=== PATIENT | female | born 1990 | race Caucasian/White ===

== ENCOUNTER → 2016-12-12 | Outpatient (CLI) | payer OTHER ==
[~2016-12-12] MED LIST: Gadobenate Dimeglumine 529 MG/ML 20 ML SDV IV ONE
--- NOTE | 2016-12-12 11:34 | MR ---
EXAMINATION: MRI of the brain with and without contrast. TECHNIQUE: Multiplanar and multisequence imaging of the brain without and following 15 cc of Multih ance contrast. HISTORY: Dizziness. FINDINGS: Cerebral hemispheres and the deep nuclei are without hemorrhage, mass, edema, gliosis, enhancement o r atrophy. No abnormal diffusion restriction. No extraaxial collections or hemorrhage. Ventricular system is of normal size and configuration without hydrocephalus. No evidence for globe flattening, small ventricles or partially empty sella to suggest pseudotumor cerebri. The brainstem and cerebellum are without hemorrhage, mass, edema, gliosis, enhancement or atrophy. Carotid basilar artery flow voids are intact. The otomastoid airspaces are clear. No internal miguel tory canal or cerebellopontine angle masses or enhancement. There is mild mucosal thickening within the maxillary sinuses. Globes, optic nerves, orbital apices, optic chiasm, optic tracts, and visual cortices are unremarka ble. The pituitary and sella turcica are unremarkable. No meningeal enhancement. The craniocervic al junction is unremarkable. No siderosis or evidence of vascular malformation. The calvarium is intact. IMPRESSION: 1. No acute intracranial findings.
== END ==
LOC: MW.MRI 08:29
PROVIDERS: ATTEND Family Medicine
DX: R42 Dizziness and giddiness (principal); G43.909 Migraine, unspecified, not intractable, without status migrainosus
CPT/HCPCS: 70553; A9577

== ENCOUNTER 2017-04-20 17:09 | Emergency (ER) | payer BC ==
--- NOTE | 2017-04-20 17:50 | EDM.PDOC ---
ED HPI GENERAL MEDICAL PROBLEM - General Chief Complaint: Abdominal Pain Stated Complaint: ABDOMINAL PAIN Time Seen by Provider: 04/20/17 17:34 - History of Present Illness INITIAL COMMENTS - FREE TEXT/NARRATIVE: HISTORY AND PHYSICAL: History of present illness: The patient is a 26-year-old female who is a 2 para 1001 who is 14 weeks with EDC of 10/24/17 and presents with complaints of lower pelvic pain bilaterally that started early this morning, 2 AM, and this pain radiates to her lower back. She has no flank pain no upper abdominal pain no nausea or vomiting and no specific diarrhea. The patient says she has had nausea and vomiting with this but that has been improving. She denies any fevers or chills or upper respiratory symptoms. She has no vaginal bleeding. She says the pelvic pain does not localize right or left and is deep in the pelvis. The patient has a known twin gestation and was sent here by Dr. Draper for evaluation of UA and ultrasound for cervical length. Patient denies any hematuria or frequency. The patient has had dysuria with urination over the last several days. Patient has no GI or history and no abdominal surgeries Review of systems: As per history of present illness and below otherwise all systems reviewed and negative. Past medical history: As per history of present illness and as reviewed below otherwise noncontributory. Surgical history: As per history of present illness and as reviewed below otherwise noncontributory. Social history: No reported history of drug or alcohol abuse. Family history: As per history of present illness and as reviewed below otherwise noncontributory. Physical exam: Gen.: Well-developed well-nourished female was nontoxic and moves easily in the ED. HEENT: Atraumatic, normocephalic, negative for conjunctival pallor or scleral icterus, mucous membranes moist, throat clear, neck supple, nontender, trachea midline. Lungs: Clear to auscultation, breath sounds equal bilaterally, chest nontender. Heart: S1S2, regular rate and rhythm no overt murmurs Abdomen: Soft, nondistended, nontender. On palpation I cannot reproduce the pain with deep examination of the lower abdomen and there is no rebound or guarding. Bowel sounds are slightly hypoactive Negative for masses or hepatosplenomegaly. Negative for costovertebral tenderness. Pelvis: Stable nontender. Genitourinary: Deferred. Rectal: Deferred. Extremities: Atraumatic, negative for cords or calf pain. Neurovascular unremarkable. Neuro: Awake, alert, oriented. Cranial nerves II through XII unremarkable. Cerebellum unremarkable. Motor and sensory unremarkable throughout. Exam nonfocal. Diagnostics: CBC CMP UA urine culture ultrasound for cervical length Therapeutics: 174: Case was discussed with Dr. draper and she specifically wants an ultrasound transvaginally for cervical length. I will notify the technologist of this. She asked to be recontacted if the cervical length is less than 2 cm. Impression: Pelvic pain in second trimester stable Definitive disposition and diagnosis as appropriate pending reevaluation and review of above. Lower Abdominal Pain Score (Numeric/FACES): 8 - Related Data Allergies Allergy/AdvReac Type Severity Reaction Status Date / Time Penicillins Allergy Swelling Verified 04/20/17 17:29 Home Meds: Home Meds . 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, Peripheral, Other (See Below) Other Neuro History: sciatic nerve damage Psychiatric History: Reports: ADD - Infectious Disease History Infectious Disease History: Reports: Chicken Pox, MRSA Social & Family History - Family History Family Medical History: Noncontributory - Tobacco Use Smoking Status *Q: Never Smoker Second Hand Smoke Exposure: No - Caffeine Use Caffeine Use: Reports: Coffee, Soda - Alcohol Use Days Per Week of Alcohol Use: 0 - Recreational Drug Use Recreational Drug Use: No ED ROS GENERAL - Review of Systems Review Of Systems: ROS reveals no pertinent complaints other than HPI. ED EXAM, GENERAL - Physical Exam Exam: See Below (See dictation) Course - Vital Signs Last Recorded V/S: Last Vital Signs Temp 36.7 C 04/20/17 17:24 Pulse 84 04/20/17 19:35 Resp 14 04/20/17 19:35 BP 113/75 04/20/17 19:35 Pulse Ox 100 04/20/17 19:35 - Orders/Labs/Meds Orders: Active Orders 24 hr Category Date Time Status OB Transvaginal [US] Stat Exams 04/20/17 18:20 Taken CULTURE URINE [RM] Stat Lab 04/20/17 18:05 Received Labs: Laboratory Tests 04/20/17 04/20/17 04/20/17 Range/Units 17:58 17:58 18:05 WBC 7.20 (4.0-11.0) K/uL RBC 4.43 (4.30-5.90) M/uL Hgb 13.9 (12.0-16.0) g/dL Hct 38.3 (36.0-46.0) % MCV 86.5 (80.0-98.0) fL MCH 31.4 (27.0-32.0) pg MCHC 36.3 (31.0-37.0) g/dL RDW Std Deviation 41.9 (28.0-62.0) fl RDW Coeff of Emiliana 13 (11.0-15.0) % Plt Count 171 (150-400) K/uL MPV 9.10 (7.40-12.00) fL Neut % (Auto) 59.9 (48.0-80.0) % Lymph % (Auto) 30.6 (16.0-40.0) % Mcdonald % (Auto) 8.2 (0.0-15.0) % Eos % (Auto) 1.0 (0.0-7.0) % Baso % (Auto) 0.3 (0.0-1.5) % Neut # (Auto) 4.3 (1.4-5.7) K/uL Lymph # (Auto) 2.2 (0.6-2.4) K/uL Mcdonald # (Auto) 0.6 (0.0-0.8) K/uL Eos # (Auto) 0.1 (0.0-0.7) K/uL Baso # (Auto) 0.0 (0.0-0.1) K/uL Nucleated RBC % 0.0 /100WBC Nucleated RBCs # 0 K/uL Sodium 137 (136-146) mmol/L Potassium 3.6 (3.5-5.1) mmol/L Chloride 110 (98-110) mmol/L Carbon Dioxide 20 L (21-31) mmol/L BUN 3 L (6.0-23.0) mg/dL Creatinine 0.6 (0.6-1.5) mg/dL Est Cr Clr Drug Dosing 116.50 mL/min Estimated GFR (MDRD) > 60.0 ml/min Glucose 84 (60-110) mg/dL Calcium 8.7 L (8.8-10.8) mg/dL Total Bilirubin 0.3 (0.1-1.5) mg/dL AST 19 (5-40) IU/L ALT 15 (8-54) IU/L Alkaline Phosphatase 60 (40-150) Total Protein 6.4 (6.0-8.0) g/dL Albumin 3.6 (3.5-5.0) g/dL Globulin 2.8 (2.0-3.5) g/dL Albumin/Globulin Ratio 1.3 (1.3-2.8) Urine Color YELLOW Urine Appearance CLEAR Urine pH 6.0 (5.0-8.0) Ur Specific Auxier <= 1.005 (1.001-1.035) Urine Protein NEGATIVE (NEGATIVE) mg/dL Urine Glucose (UA) NEGATIVE (NEGATIVE) mg/dL Urine Ketones TRACE H (NEGATIVE) mg/dL Urine Occult Blood NEGATIVE (NEGATIVE) Urine Nitrite NEGATIVE (NEGATIVE) Urine Bilirubin NEGATIVE (NEGATIVE) Urine Urobilinogen 0.2 (<2.0) EU/dL Ur Leukocyte Esterase TRACE (NEGATIVE) Urine RBC 0-2 (0-2/HPF) Urine WBC 1-2 (0-5/HPF) Ur Epithelial Cells FEW (NONE-FEW) Urine Bacteria FEW (NEGATIVE) Urine Mucus LIGHT (NONE-MOD) Departure - Departure Time of Disposition: 19:25 Disposition: Home, Self-Care 01 Condition: Good Clinical Impression: Pelvic pain affecting in second trimester, antepartum - Discharge Information Instructions: Pelvic Pain, Female, [id number] Referrals: Jannie Brito DO [Primary Care Provider] - Forms: ED Department Discharge Additional Instructions: The following information is given to patients seen in the emergency department who are being discharged to home. This information is to outline your options for follow-up care. We provide all patients seen in our emergency department with a follow-up referral. The need for follow-up, as well as the timing and circumstances, are variable depending upon the specifics of your emergency department visit. If you don't have a primary care physician on staff, we will provide you with a referral. We always advise you to contact your personal physician following an emergency department visit to inform them of the circumstance of the visit and for follow-up with them and/or the need for any referrals to a consulting specialist. The emergency department will also refer you to a specialist when appropriate. This referral assures that you have the opportunity for followup care with a specialist. All of these measure are taken in an effort to provide you with optimal care, which includes your followup. Under all circumstances we always encourage you to contact your private physician who remains a resource for coordinating your care. When calling for followup care, please make the office aware that this follow-up is from your recent emergency room visit. If for any reason you are refused follow-up, please contact the [facility] emergency department at and ask to speak to the emergency department charge nurse. [facility] [address] [id number] Push hydration and follow-up with Dr. Draper in the clinic as scheduled. Use Tylenol only for pain if you choose and return to ER as needed and as discussed. - My Orders Last 24 Hours: My Active Orders 04/20/17 18:05 CULTURE URINE [RM] Stat 04/20/17 18:20 OB Transvaginal [US] Stat - Assessment/Plan Last 24 Hours: My Active Orders 04/20/17 18:05 CULTURE URINE [RM] Stat 04/20/17 18:20 OB Transvaginal [US] Stat
[2017-04-20 18:27] LABS: CHLORIDE,CL 110 mmol/L (98-110); SODIUM,NA 137 mmol/L (136-146)
[2017-04-20 23:41] VITALS: BP 113/75
--- NOTE | 2017-04-21 10:53 | US ---
EXAM DATE: 04/20/17 PATIENT'S AGE: 26 Patient: MIGNON NOONAN Facility: [place], [place] Site . Site : 1990 Study: US OB Pelvis [id number] 6:45:11 PM Ordering Physician: José Treviño Final Report: INDICATION: Twin gestation. Abdominal pain. Evaluate cervical length. FINDINGS/IMPRESSION: Limited transvaginal sonographic evaluation shows the cervix to be closed with a normal cervical length of 4.3 to 5.3 centimeters. There is a twin gestation with both fetuses exhibiting cardiac activity with heart rates of 149 and 169 BPM. Dictated by: Ole Dangelo MD @ 04/20/2017 19:13:49 (Electronic Signature) Report Signed by Proxy. MARI
== END 2017-04-20 19:36 | disposition home or self-care (01) ==
LOC: MW.ED 17:09
DX: O99.89 Other specified diseases and conditions complicating pregnancy, childbirth and the puerperium (principal); R10.2 Pelvic and perineal pain; Z3A.14 14 weeks gestation of pregnancy
CPT/HCPCS: 36415; 76817; 76817-26; 80053; 81001; 85025; 87086; 99283; 99284-25

== ENCOUNTER 2017-06-05 17:14 | Emergency (ER) | payer BC ==
--- NOTE | 2017-06-05 17:39 | EDM.PDOC ---
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 Past medical history: As per history of present illness and as reviewed below otherwise noncontributory. Surgical history: As per history of present illness and as reviewed below otherwise noncontributory. Social history: No reported history of drug or alcohol abuse. Family history: As per history of present illness and as reviewed below otherwise noncontributory. Physical exam: HEENT: Atraumatic, normocephalic, pupils reactive, negative for conjunctival pallor or scleral icterus, mucous membranes moist, throat clear, neck supple, nontender, trachea midline. Lungs: Clear to auscultation, breath sounds equal bilaterally, chest nontender. Heart: S1S2, regular, negative for clicks, rubs, or JVD. Abdomen: Soft, gravid uterus consistent with dates nontender. Negative for masses or hepatosplenomegaly. Negative for costovertebral tenderness. Pelvis: Stable nontender. Genitourinary: Deferred. Rectal: Deferred. Extremities: Atraumatic, negative for cords or calf pain. Neurovascular unremarkable. Neuro: Awake, alert, oriented. Cranial nerves II through XII unremarkable. Cerebellum unremarkable. Motor and sensory unremarkable throughout. Exam nonfocal. Diagnostics: Transabdominal ultrasound for fluid transvaginal for cervical Therapeutics: None Impression: #1 second trimester twin gestation #2 medical screening exam Definitive disposition and diagnosis as appropriate pending reevaluation and review of above. Abdominal Pain Score (Numeric/FACES): 6 - Related Data Allergies Allergy/AdvReac Type Severity Reaction Status Date / Time Penicillins Allergy Swelling Verified 04/20/17 17:29 Home Meds: Home Meds . 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, Peripheral, Other (See Below) Other Neuro History: sciatic nerve damage Psychiatric History: Reports: ADD - Infectious Disease History Infectious Disease History: Reports: C-Difficile, MRSA Social & Family History - Family History Family Medical History: Noncontributory - Tobacco Use Smoking Status *Q: Never Smoker Second Hand Smoke Exposure: No - Caffeine Use Caffeine Use: Reports: Soda Other Caffeine Use: 1 per day - Alcohol Use Days Per Week of Alcohol Use: 0 - Recreational Drug Use Recreational Drug Use: No ED ROS GENERAL - Review of Systems Review Of Systems: ROS reveals no pertinent complaints other than HPI. ED EXAM, GENERAL - Physical Exam Exam: See Below (See dictation) Course - Vital Signs Last Recorded V/S: Last Vital Signs Temp 98.1 F 06/05/17 17:21 Pulse 101 H 06/05/17 17:21 Resp 20 06/05/17 17:21 BP 134/78 06/05/17 17:21 Pulse Ox 96 06/05/17 17:21 - Orders/Labs/Meds Orders: Active Orders 24 hr Category Date Time Status OB Ltd 1 or More Fetus [US] Stat Exams 06/05/17 17:21 Taken OB Transvaginal [US] Stat Exams 06/05/17 17:19 Taken Departure - Departure Disposition: Home, Self-Care 01 Clinical Impression: Twin gestation in second trimester - Discharge Information Referrals: Jannie Brito DO [Primary Care Provider] - Forms: ED Department Discharge Additional Instructions: follow up with Dr Draper on Monday follow up sooner if leakage of fluid, increased pain or other problems <Santana Kaur - Last Filed: 06/05/17 19:43> Course - Re-Assessments/Exams Free Text/Narrative Re-Assessment/Exam: 06/05/17 19:39 I discussed reassuring ultrasound findings. She has an appointment to see Dr Draper on Monday. Departure - Departure Time of Disposition: 19:41 Condition: Good
[2017-06-05 20:31] VITALS: BP 120/78
--- NOTE | 2017-06-06 11:22 | US ---
EXAM DATE: 06/05/17 PATIENT'S AGE: 26 Patient: MIGNON NOONAN Facility: [place], [place] Site . Site : 1990 Study: US OB Pelvis [id number]/2017 6:16:42 PM Ordering Physician: Nicholas Walker Final Report: INDICATION: Vaginal discharge. Check RENETTA and cervical length. Twin . Clinical STEVE obtained from prior ultrasound from 04/20/2017 indicates STEVE 10/25/2017. TECHNIQUE: Ultrasound OB pelvis transabdominal. Limited OB ultrasound. COMPARISON: Prior OB ultrasound dated 04/20/2017. FINDINGS: Limited sonographic evaluation of twin gestations, evaluating cervical length and amniotic fluid. Twin A: Vertex position. heart rate not measured. Twin B: Transverse position. heart rate not measured. RENETTA: Amniotic fluid of twin A and twin B subjectively normal. RENETTA measurement 9.8 centimeters for Twin A. RENETTA not calculated for Twin B. Cervical Length: Cervix long and closed, measuring 4.9 centimeters. No funneling of the internal os. IMPRESSION: 1. Twin gestation with subjectively normal RENETTA. 2. Cervix long and closed, measuring 4.9 centimeters. 3. Twin A and Twin B heart rates and RENETTA for twin B not provided. Additional imaging by healthcare technician pending. Dictated by Santana Matute MD @ 06/05/2017 7:06:57 PM Dictated by: Santana Matute MD @ 06/05/2017 19:07:05 ----- ADDENDUM ----- ADDENDUM: Additional images submitted for review on 06/05/2017 at 7:30 p.m. ENVIRONMENTAL GEOLOGIST . Twin A: Heart rate 140 bpm. Twin B: Heart rate 149 bpm. Twin B RENETTA: 10.0 cm Dictated by Santana Matute MD @ Jun 05 2017 7:34PM (Electronic Signature) Report Signed by Proxy. MTDD
--- NOTE | 2017-06-06 11:31 | US ---
EXAM DATE: 06/05/17 PATIENT'S AGE: 26 Patient: MIGNON NOONAN Facility: [place], [place] Site . Site : 1990 Study: US OB Pelvis [id number] 6:16:42 PM Ordering Physician: Nicholas Walker Final Report: INDICATION: Vaginal discharge. Check RENETTA and cervical length. Twin . Clinical STEVE obtained from prior ultrasound from 04/20/2017 indicates STEVE 10/25/2017. TECHNIQUE: Ultrasound OB pelvis transabdominal. Limited OB ultrasound. COMPARISON: Prior OB ultrasound dated 04/20/2017. FINDINGS: Limited sonographic evaluation of twin gestations, evaluating cervical length and amniotic fluid. Twin A: Vertex position. heart rate not measured. Twin B: Transverse position. heart rate not measured. RENETTA: Amniotic fluid of twin A and twin B subjectively normal. RENETTA measurement 9.8 centimeters for Twin A. RENETTA not calculated for Twin B. Cervical Length: Cervix long and closed, measuring 4.9 centimeters. No funneling of the internal os. IMPRESSION: 1. Twin gestation with subjectively normal RENETTA. 2. Cervix long and closed, measuring 4.9 centimeters. 3. Twin A and Twin B heart rates and RENETTA for twin B not provided. Additional imaging by plumbing and heating mechanic pending. Dictated by Santana Matute MD @ 06/05/2017 7:06:57 PM Dictated by: Santana Matute MD @ 06/05/2017 19:07:05 ----- ADDENDUM ----- ADDENDUM: Additional images submitted for review on 06/05/2017 at 7:30 p.m. EQUIPMENT SCHEDULER . Twin A: Heart rate 140 bpm. Twin B: Heart rate 149 bpm. Twin B RENETTA: 10.0 cm Dictated by Santana Matute MD @ Jun 05 2017 7:34PM (Electronic Signature) Report Signed by Proxy. MTDD
== END 2017-06-05 20:00 | disposition home or self-care (01) ==
LOC: MW.ED 17:14
DX: O30.002 Twin pregnancy, unspecified number of placenta and unspecified number of amniotic sacs, second trimester (principal); Z88.0 Allergy status to penicillin; Z3A.20 20 weeks gestation of pregnancy
CPT/HCPCS: 76815; 76815-26; 76817; 76817-26; 99283; 99284-25

== ENCOUNTER 2017-06-21 21:14 | Observation (INO) | payer BC ==
--- NOTE | 2017-06-22 13:00 | US ---
EXAM DATE: 06/21/17 PATIENT'S AGE: 26 Patient: MIGNON NOONAN Facility: [place], [place] Site . Site : 1990 Study: US OB Pelvis [id number] 11:06:21 PM Ordering Physician: Baron Granados Final Report: INDICATION: Decreased movement of Twin B TECHNIQUE: Ultrasound OB pelvis transabdominal. Real time hanson scale imaging of the fetus was performed with color Doppler and spectral Doppler analysis of the umbilical artery without stress testing. COMPARISON: 06/05/2017 FINDINGS: LMP: 01/17/2017 Gestational age by LMP: 22 weeks 1 day Estimated due date by LMP: 10/24/2017 Twin A: Fetus A demonstrates a regular cardiac rate of 131 beats per minute. Fetus has a no cephalic maternal right orientation. breathing movements, motion, and tone were all observed. Twin B: Fetus B has a regular cardiac rate of 144 beats per minute. Fetus has a transverse occipital right orientation. breathing movement, motion and tone were all observed. IMPRESSION: Twin A heart rate 131 beats per minute with biophysical profile 8/8. Twin B heart rate 144 beats per minute with biophysical profile 8/8. Dictated by Tomas Franco MD @ 06/21/2017 11:57:25 PM Dictated by: Tomas Franco MD @ 06/21/2017 23:57:30 (Electronic Signature) Report Signed by Proxy. MARI
--- NOTE | 2017-06-22 13:01 | US ---
EXAM DATE: 06/21/17 PATIENT'S AGE: 26 Patient: MIGNON NOONAN Facility: [place], [place] Site . Site : 1990 Study: US OB Pelvis [id number] 11:06:21 PM Ordering Physician: Baron Granados Final Report: INDICATION: Decreased movement of Twin B TECHNIQUE: Ultrasound OB pelvis transabdominal. Real time hanson scale imaging of the fetus was performed with color Doppler and spectral Doppler analysis of the umbilical artery without stress testing. COMPARISON: 06/05/2017 FINDINGS: LMP: 01/17/2017 Gestational age by LMP: 22 weeks 1 day Estimated due date by LMP: 10/24/2017 Twin A: Fetus A demonstrates a regular cardiac rate of 131 beats per minute. Fetus has a no cephalic maternal right orientation. breathing movements, motion, and tone were all observed. Twin B: Fetus B has a regular cardiac rate of 144 beats per minute. Fetus has a transverse occipital right orientation. breathing movement, motion and tone were all observed. IMPRESSION: Twin A heart rate 131 beats per minute with biophysical profile 8/8. Twin B heart rate 144 beats per minute with biophysical profile 8/8. Dictated by Tomas Franco MD @ 06/21/2017 11:57:25 PM Dictated by: Tomas Franco MD @ 06/21/2017 23:57:30 (Electronic Signature) Report Signed by Proxy. MARI
== END 2017-06-21 23:15 | disposition home or self-care (01) ==
LOC: MW.OBCHECK 21:14 → MW.OB 21:19 → MW.OBCHECK 21:53 → MW.OB 21:54
PROVIDERS: ADMIT Obstetrics & Gynecology; ATTEND Obstetrics & Gynecology
DX: O36.8122 Decreased fetal movements, second trimester, fetus 2 (principal); O30.002 Twin pregnancy, unspecified number of placenta and unspecified number of amniotic sacs, second trimester; Z3A.22 22 weeks gestation of pregnancy; Z88.0 Allergy status to penicillin
CPT/HCPCS: 59025; 76819; 76819-26

== ENCOUNTER 2017-10-01 02:40 | Inpatient (IN) | payer BC ==
[2017-10-01] MEDS ORDERED: Sodium Chloride 0.9% 10 ML Syringe FLUSH PRN ×2 (04:39→09:17)
[2017-10-01] MEDS ORDERED: Sodium Chloride 0.9% 2.5 ML Syringe FLUSH PRN ×2 (04:39→09:17)
[2017-10-01] MEDS ORDERED: Lactated Ringers 1,000 ML IV SCH ×3 (04:45→10:45)
[2017-10-01] MEDS ORDERED: Clindamycin Phosphate in D5W 900 MG in Premix Bag 1 BAG IV ONE ×2 (09:17)
[2017-10-01] MEDS ORDERED: Oxytocin/0.9 % Sodium Chloride 30 UNIT/500 ML BAG IV SCH (09:30)
[2017-10-01] MEDS ORDERED: Citric Acid/Sodium Citrate Solution 30 ML Cup PO SCH (09:30)
[2017-10-01] MEDS ORDERED: Oxytocin/0.9 % Sodium Chloride 30 UNIT/500 ML BAG ONE (09:35)
[2017-10-01] MEDS ORDERED: Morphine PF 1 MG/ML Amp ONE (09:37)
[2017-10-01] MEDS ORDERED: ePHEDrine 50 MG/ML SDV ONE (09:37)
[2017-10-01] MEDS ORDERED: Phenylephrine/Normal Saline 100 MCG/ML 10 ML Syringe ONE (09:37)
[2017-10-01] MEDS ORDERED: Phenylephrine 1% 10 MG/ML SDV ONE (10:07)
[2017-10-01] MEDS ORDERED: Ondansetron 4 MG/2 ML SDV ONE (10:26)
[2017-10-01] MEDS ORDERED: Propofol 200 MG/20 ML SDV ONE (10:29)
[2017-10-01] MEDS ORDERED: diphenhydrAMINE 50 MG/ML SDV IVPUSH PRN ×2 (10:42→11:04)
[2017-10-01] MEDS ORDERED: Acetaminophen/oxyCODONE 325-5 MG Tab PO PRN ×2 (10:42→11:06)
[2017-10-01] MEDS ORDERED: Lanolin 100% Cream 7 GM Tube TOP PRN (10:42)
[2017-10-01] MEDS ORDERED: Simethicone 80 MG Tab.Chew PO PRN (10:42)
[2017-10-01] MEDS ORDERED: Aluminum Hydroxide/Magnesium Hydroxide/Simethicone Susp 30 ML Cup PO PRN (10:42)
[2017-10-01] MEDS ORDERED: Bisacodyl 10 MG Supp RECTAL PRN (10:42)
[2017-10-01] MEDS ORDERED: Ondansetron 4 MG/2 ML SDV IV PRN (10:42)
--- NOTE | 2017-10-01 10:51 | PCM.OPNOTE ---
- General Post-Op/Procedure Note Date of Surgery/Procedure: 10/01/17 Operative Procedure(s): Primary LTCS Findings: Twin A female 9, 9 weight 5 lb 11 oz Twin B male 5, 7 weight pending Dichorionic/diamniotic placenta Normal appearing pelvis Pre Op Diagnosis: 36/5 week IUP. Twin gestation. Labor. Breech/cephalic-- malpresentation Post-Op Diagnosis: Same Anesthesia Technique: Spinal Primary Surgeon: Poppy Chavez Fluid Replacement, Intraop: 2,000 EBL in mLs: 700 Complications: none known Condition: Good
--- NOTE | 2017-10-01 10:58 | PCM.PREANE ---
Preanesthetic Assessment - Anesthesia/Transfusion/Family Hx Anesthesia History: Prior Anesthesia Without Reaction Family History of Anesthesia Reaction: No Transfusion History: No Prior Transfusion(s) Intubation History: Unknown - Review of Systems General: No Symptoms Pulmonary: No Symptoms Cardiovascular: No Symptoms Gastrointestinal: No Symptoms Neurological: No Symptoms Other: Reports: None - Physical Assessment O2 Sat by Pulse Oximetry: 100 Respiratory Rate: 13 Vital Signs: Last Vital Signs Temp 36.4 C 10/01/17 10:43 Pulse 97 10/01/17 10:43 Resp 13 10/01/17 10:43 BP 93/43 L 10/01/17 10:43 Pulse Ox 100 10/01/17 10:43 Height: 1.6 m Weight: 82.554 kg ASA Class: 2E Mental Status: Alert & Oriented x3 Airway Class: Mallampati = 2 Dentition: Reports: Normal Dentition Thyro-Mental Finger Breadths: 3 Mouth Opening Finger Breadths: 3 ROM/Head Extension: Full Lungs: Clear to Auscultation, Normal Respiratory Effort Cardiovascular: Regular Rate, Regular Rhythm - Lab Values: Laboratory Last Values WBC 11.17 K/uL (4.0-11.0) H 10/01/17 09:30 RBC 4.54 M/uL (4.30-5.90) 10/01/17 09:30 Hgb 14.8 g/dL (12.0-16.0) 10/01/17 09:30 Hct 42.3 % (36.0-46.0) 10/01/17 09:30 MCV 93.2 fL (80.0-98.0) 10/01/17 09:30 MCH 32.6 pg (27.0-32.0) H 10/01/17 09:30 MCHC 35.0 g/dL (31.0-37.0) 10/01/17 09:30 RDW Std Deviation 47.3 fl (28.0-62.0) 10/01/17 09:30 RDW Coeff of Emiliana 14 % (11.0-15.0) 10/01/17 09:30 Plt Count 162 K/uL (150-400) 10/01/17 09:30 MPV 9.30 fL (7.40-12.00) 10/01/17 09:30 Nucleated RBC % 0.0 /100WBC 10/01/17 09:30 Nucleated RBCs # 0 K/uL 10/01/17 09:30 Blood Type O POSITIVE 10/01/17 09:30 Antibody Screen NEGATIVE 10/01/17 09:30 - Allergies Allergies/Adverse Reactions: Allergies Allergy/AdvReac Type Severity Reaction Status Date / Time Penicillins Allergy Swelling Verified 04/20/17 17:29 - Blood Blood Available: No - Anesthesia Plan Pre-Op Medication Ordered: None - Acknowledgements Anesthesia Type Planned: Spinal Pt an Appropriate Candidate for the Planned Anesthesia: Yes Alternatives and Risks of Anesthesia Discussed w Pt/Guardian: Yes Pt/Guardian Understands and Agrees with Anesthesia Plan: Yes PreAnesthesia Questionnaire - Past Health History Medical/Surgical History: Denies Medical/Surgical History [employer] History: Reports: Neurological History: Reports: Neuropathy, Peripheral, Other (See Below) Other Neuro History: sciatic nerve damage Psychiatric History: Reports: ADD - Infectious Disease History Infectious Disease History: Reports: C-Difficile, MRSA - Past Surgical History HEENT Surgical History: Reports: Oral Surgery GI Surgical History: Reports: Colonoscopy - SUBSTANCE USE Smoking Status *Q: Never Smoker Tobacco Use Within Last Twelve Months: No Second Hand Smoke Exposure: No Days Per Week of Alcohol Use: 0 Recreational Drug Use History: No - HOME MEDS Home Medications: Home Meds . [No Known Home Meds] 09/18/16 [History] - CURRENT (IN HOUSE) MEDS Current Meds: Current Medications Al Hydroxide/Mg Hydroxide (Mag-Al Plus) 30 ml PO Q8H PRN PRN Reason: Heartburn Bisacodyl (Dulcolax) 10 mg RECTAL .ONCE PRN PRN Reason: Constipation Citric Acid/Sodium Citrate (Bicitra Solution) 30 ml PO .ONCE [facility] Diphenhydramine HCl (Benadryl) 25 mg IVPUSH Q6H PRN PRN Reason: Itching or Nausea Docusate Sodium (Colace) 100 mg PO BID [facility] Emollient Ointment (Lansinoh Hpa) 0 gm TOP ASDIRECTED PRN PRN Reason: Sore Nipples Lactated Ringer's (Ringers, Lactated) 1,000 mls @ 500 mls/hr IV .BOLUS [facility] Last Admin: 10/01/17 04:49 Dose: 500 mls/hr Oxytocin/Sodium Chloride (Oxytocin 30 Unit/500 Ml-Ns) 30 unit in 500 mls @ 250 mls/hr IV TITRATE [facility] Lactated Ringer's (Ringers, Lactated) 1,000 mls @ 500 mls/hr IV .BOLUS [facility] Lactated Ringer's (Ringers, Lactated) 1,000 mls @ 125 mls/hr IV ASDIRECTED [facility] Ibuprofen (Motrin) 800 mg PO Q8H PRN PRN Reason: mild pain or fever Ketorolac Tromethamine (Toradol) 30 mg IVPUSH Q6H [facility] Stop: 10/02/17 10:46 Ondansetron HCl (Zofran) 4 mg IV Q4H PRN PRN Reason: Nausea/Vomiting Oxycodone/Acetaminophen (Percocet 325-5 Mg) 1 tab PO Q4H PRN PRN Reason: Pain (moderate 4-6) Oxycodone/Acetaminophen (Percocet 325-5 Mg) 2 tab PO Q4H PRN PRN Reason: Pain (moderate 4-6) Simethicone (Simethicone) 80 mg PO Q4H PRN PRN Reason: Gas Sodium Chloride (Saline Flush) 10 ml FLUSH ASDIRECTED PRN PRN Reason: Keep Vein Open Sodium Chloride (Saline Flush) 2.5 ml FLUSH ASDIRECTED PRN PRN Reason: Keep Vein Open Sodium Chloride (Saline Flush) 10 ml FLUSH ASDIRECTED PRN PRN Reason: Keep Vein Open Sodium Chloride (Saline Flush) 2.5 ml FLUSH ASDIRECTED PRN PRN Reason: Keep Vein Open Discontinued Medications Ephedrine Sulfate (Ephedrine Sulfate) Confirm Administered Dose 50 mg .ROUTE .STK-MED ONE Stop: 10/01/17 09:38 Clindamycin Phosphate 900 mg/ (Premix) 50 mls @ 100 mls/hr IV ASDIRECTED ONE Stop: 10/01/17 09:46 Oxytocin/Sodium Chloride (Oxytocin 30 Unit/500 Ml-Ns) Confirm Administered Dose 60 unit in 1,000 mls @ as directed .ROUTE .STK-MED ONE Stop: 10/01/17 09:36 Morphine Sulfate (Duramorph Pf) Confirm Administered Dose 1 mg .ROUTE .STK-MED ONE Stop: 10/01/17 09:38 Ondansetron HCl (Zofran) Confirm Administered Dose 4 mg .ROUTE .STK-MED ONE Stop: 10/01/17 10:27 Phenylephrine HCl (Phenylephrine In Ns 100 Mcg/Ml) Confirm Administered Dose 1 mg .ROUTE .STK-MED ONE Stop: 10/01/17 09:38 Phenylephrine HCl (Sae-Synephrine) Confirm Administered Dose 10 mg .ROUTE .STK- MED ONE Stop: 10/01/17 10:08 Propofol (Diprivan 20 Ml) Confirm Administered Dose 200 mg .ROUTE .STK-MED ONE Stop: 10/01/17 10:30
[2017-10-01] MEDS ORDERED: Naloxone 0.4 MG/ML Syringe IVPUSH PRN (11:04)
[2017-10-01] MEDS ORDERED: Nalbuphine 10 MG/1 ML Vial IVPUSH PRN (11:04)
[2017-10-01] MEDS ORDERED: fentaNYL 100 MCG/2 ML SDV IVPUSH PRN (11:06)
[2017-10-01] MEDS: Ketorolac 30 MG/ML SDV IVPUSH SCH ×3 (11:12→23:37)
--- NOTE | 2017-10-01 11:56 | PCM.POSTAN ---
POST ANESTHESIA ASSESSMENT - MENTAL STATUS Mental Status: Alert, Oriented - RESPIRATORY Respiratory Status: Respiratory Rate WNL, Airway Patent, O2 Saturation Stable - CARDIOVASCULAR CV Status: Pulse Rate WNL, Blood Pressure Stable - GASTROINTESTINAL GI Status: No Symptoms - PAIN Pain Score: 0 - POST OP HYDRATION Hydration Status: Adequate & Stable
--- NOTE | 2017-10-01 12:29 | OR ---
SURGEON: Poppy Chavez M.D. DATE OF PROCEDURE: 10/01/2017 PREOPERATIVE DIAGNOSES: 1. 36 and 5 weeks intrauterine twin gestation. 2. Active labor. 3. Breech cephalic presentation on presentation. POSTOPERATIVE DIAGNOSES: 1. 36 and 5 weeks intrauterine twin gestation. 2. Active labor. 3. Breech cephalic presentation on presentation. PROCEDURE: Primary low transverse section. ANESTHESIA: Spinal. ESTIMATED BLOOD LOSS: 700 mL. FLUIDS: 2000 mL crystalloid. COMPLICATIONS: None known. FINDINGS: Twin A was a female, score 9 at 1 minute and 9 at 5 minutes, and weight of 5 pounds 11 ounces. Twin B, male, score 5 at 1 minute and 7 at 5 minutes, weight is pending. Clear amniotic fluid. Dichorionic and diamniotic. Placenta to pathology. Normal appearing pelvis. DISPOSITION: The patient to PACU, to nursery, stable. 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 With observation, she had no further bleeding but was dionicio every 1 to 4 minutes. On initial examination, she was found to be 3 cm dilatation and with observation despite IV fluid hydration and rest, she progressed to 5 cm dilatation with bulging membranes. Therefore, a decision was made to proceed with delivery. She did receive steroids for lung maturity over a week ago. Risks of have been discussed with Mayra including infection, bleeding, possible trauma surrounding bowel , bladder, ureter, in case of excessive blood loss, need for blood product transfusion, rare lifesaving circumstances, need for hysterectomy, risk of thromboembolic event, risk of spinal anesthesia, she voiced her understanding. Proper consent obtained. Twin A, still breech presentation. The patient was taken to the operating room, where she underwent spinal anesthetic, was placed in the dorsal lithotomy position, leftward tilt. SCDs lower extremities. Rondon to gravity. She was prepped and draped usual sterile fashion. Received clindamycin prophylactically given penicillin allergy. After being prepped and draped in usual sterile fashion, anesthesia was tested and found to be adequate. Pfannenstiel skin incision was now created carried down level of the rectus fascia, which was incised in midline, lateralized on either side. The superior aspect of the fascia was tented up, dissected sharply and bluntly away from underlying muscle. In a similar fashion, this was performed with the inferior aspect of the fascia. Rectus muscle was in midline and peritoneum was tented upward and entered sharply. Rectus muscle and peritoneum was lateralized bluntly. Uterine position and position palpated. Self-retaining retractor gently placed. Uterovesical reflection was visualized. Bladder flap was created sharply and bluntly. Bladder was mobilized away from lower uterine segment. Low transverse hysterotomy was now performed. Uterine cavity was entered with blunt end of the scalpel. Amniotomy was performed. Clear fluid was returned. Hysterotomy was lateralized. Twin A was in mele breech presentation. Buttocks delivered to the midline, flexed, delivered, followed by lower extremities, trunk, upper extremities, and head. The 's oropharynx and nares bulb suctioned. Cord clamped x2 and cut. was handed off to the attending physician, Dr. Shi. Attention was now turned to performing amniotomy on twin B. Head was delivered to the midline. Amniotomy was performed. Clear fluid was returned. Head was delivered followed by anterior shoulder, posterior shoulder, and remainder of the body without difficulty. The infant's oropharynx and nares bulb suctioned. Cord clamped x2 and cut. Infant was handed off to attending physician, Dr. Shi. Cord arterial, cord venous, cord blood samples were obtained for both umbilical cords. The placenta was delivered. This will be sent to Pathology for analysis. Uterine cavity was cleared of all clot and debris. Hysterotomy repaired using 0 Vicryl continuous running locked fashion followed by a re-imbricating layer. Area in the midline was replicated with 2 [id number] sutures followed by cauterization of a persistent bleeding vessel along the lower peritoneum. Posterior aspect of the uterus inspected. No defects or hematomas found to be forming. Region was well irrigated suction dried. Tubes and ovaries appeared normal. Uterus returned to abdominal cavity. Colonic gutters were cleared of all clot and debris, well irrigated and suction dried. Hysterotomy was once again inspected and found to be hemostatic. Self-retaining retractor gently removed. Hysterotomy once again inspected and found to be hemostatic. Rectus muscles reapproximated using 0 Vicryl with inverted mattress suture technique. Anterior aspect of the muscle, posterior aspect of the fascia closely inspected. Any areas of oozing were cauterized. The rectus fascia was reapproximated using 0 Vicryl in continuous running fashion beginning laterally on either side and meeting in midline. Subcutaneous tissue was well irrigated suction dried and any areas of oozing were cauterized. The skin edges were reapproximated using 3-0 Vicryl on a Andrew needle in subcuticular fashion followed by half-inch Steri-Strips Mastisol to imbricate the incision. Sponge and instrument needle count was correct x2. The patient has tolerated the procedure well overall. She will go to PACU in stable condition. to nursery. LISA / HANANE /[id number]
[2017-10-01] MEDS: Docusate Sodium 100 MG Cap PO SCH (20:41)
[2017-10-02] MEDS: Ketorolac 30 MG/ML SDV IVPUSH SCH ×2 (05:36→11:10)
--- NOTE | 2017-10-02 07:54 | PCM48HPAN ---
Post Anesthesia Note - EVALUATION WITHIN 48HRS OF ANESTHETIC Vital Signs in Normal Range: Yes Patient Participated in Evaluation: Yes Respiratory Function Stable: Yes Airway Patent: Yes Cardiovascular Function Stable: Yes Hydration Status Stable: Yes Pain Control Satisfactory: Yes Nausea and Vomiting Control Satisfactory: Yes Mental Status Recovered: Yes Resp Rate: 19 - COMMENTS/OBSERVATIONS Free Text/Narrative:: Pt snuggling baby girl this AM and denies any anesthesia complaints.
--- NOTE | 2017-10-02 08:11 | PCM.PNPP ---
<Aida Yarbrough - Last Filed: 10/02/17 08:08> - General Info Date of Service: 10/02/17 Functional Status: Reports: Pain Controlled, Tolerating Diet, Ambulating, Urinating - Review of Systems General: Denies: Fever, Weakness, Fatigue Pulmonary: Denies: Shortness of Breath, Pleuritic Chest Pain, Cough Cardiovascular: Denies: Chest Pain, Palpitations, Dyspnea on Exertion Gastrointestinal: Denies: Abdominal Pain Genitourinary: Denies: Dysuria - General Info Date of Service: 10/02/17 - Patient Data Vital Signs - Most Recent: Last Vital Signs Temp 36.5 C 10/02/17 03:00 Pulse 86 10/02/17 07:00 Resp 19 10/02/17 07:54 BP 102/62 10/02/17 03:00 Pulse Ox 96 10/02/17 07:00 Weight - Most Recent: 82.554 kg I&O - Last 24 Hours: Intake & Output 10/01/17 10/02/17 10/02/17 22:59 06:59 14:59 Intake Total 1750 700 Output Total 850 1900 Balance 900 -1200 Lab Results - Last 24 Hours: Laboratory Results - last 24 hr 10/01/17 10/01/17 10/02/17 Range/Units 09:30 09:30 05:26 WBC 11.17 H (4.0-11.0) K/uL RBC 4.54 (4.30-5.90) M/uL Hgb 14.8 12.0 (12.0-16.0) g/dL Hct 42.3 34.6 L (36.0-46.0) % MCV 93.2 (80.0-98.0) fL MCH 32.6 H (27.0-32.0) pg MCHC 35.0 (31.0-37.0) g/dL RDW Std Deviation 47.3 (28.0-62.0) fl RDW Coeff of Emiliana 14 (11.0-15.0) % Plt Count 162 (150-400) K/uL MPV 9.30 (7.40-12.00) fL Nucleated RBC % 0.0 /100WBC Nucleated RBCs # 0 K/uL Blood Type O POSITIVE Antibody Screen NEGATIVE Med Orders - Current: Current Medications Al Hydroxide/Mg Hydroxide (Mag-Al Plus) 30 ml PO Q8H PRN PRN Reason: Heartburn Bisacodyl (Dulcolax) 10 mg RECTAL .ONCE PRN PRN Reason: Constipation Citric Acid/Sodium Citrate (Bicitra Solution) 30 ml PO .ONCE [facility] Diphenhydramine HCl (Benadryl) 25 mg IVPUSH Q6H PRN PRN Reason: Itching or Nausea Diphenhydramine HCl (Benadryl) 25 mg IVPUSH Q4H PRN PRN Reason: Itching Stop: 10/02/17 11:05 Docusate Sodium (Colace) 100 mg PO BID [facility] Last Admin: 10/01/17 20:41 Dose: 100 mg Emollient Ointment (Lansinoh Hpa) 0 gm TOP ASDIRECTED PRN PRN Reason: Sore Nipples Fentanyl (Sublimaze) 25 - 50 mcg IVPUSH Q30M PRN PRN Reason: Pain Lactated Ringer's (Ringers, Lactated) 1,000 mls @ 500 mls/hr IV .BOLUS [facility] Last Admin: 10/01/17 04:49 Dose: 500 mls/hr Oxytocin/Sodium Chloride (Oxytocin 30 Unit/500 Ml-Ns) 30 unit in 500 mls @ 250 mls/hr IV TITRATE [facility] Lactated Ringer's (Ringers, Lactated) 1,000 mls @ 500 mls/hr IV .BOLUS [facility] Lactated Ringer's (Ringers, Lactated) 1,000 mls @ 125 mls/hr IV ASDIRECTED [facility] Ibuprofen (Motrin) 800 mg PO Q8H PRN PRN Reason: mild pain or fever Ketorolac Tromethamine (Toradol) 30 mg IVPUSH Q6H [facility] Stop: 10/02/17 10:46 Last Admin: 10/02/17 05:36 Dose: 30 mg Nalbuphine HCl (Nubain) 5 mg IVPUSH Q3H PRN PRN Reason: Pruritis Stop: 10/02/17 11:05 Naloxone HCl (Narcan) 0.1 mg IVPUSH ONETIME PRN PRN Reason: Other Stop: 10/02/17 11:05 Ondansetron HCl (Zofran) 4 mg IV Q4H PRN PRN Reason: Nausea/Vomiting Oxycodone/Acetaminophen (Percocet 325-5 Mg) 1 tab PO Q4H PRN PRN Reason: Pain (moderate 4-6) Oxycodone/Acetaminophen (Percocet 325-5 Mg) 2 tab PO Q4H PRN PRN Reason: Pain (moderate 4-6) Oxycodone/Acetaminophen (Percocet 325-5 Mg) 1 - 2 tab PO Q6H PRN PRN Reason: Pain Stop: 10/03/17 14:00 Simethicone (Simethicone) 80 mg PO Q4H PRN PRN Reason: Gas Sodium Chloride (Saline Flush) 10 ml FLUSH ASDIRECTED PRN PRN Reason: Keep Vein Open Sodium Chloride (Saline Flush) 2.5 ml FLUSH ASDIRECTED PRN PRN Reason: Keep Vein Open Sodium Chloride (Saline Flush) 10 ml FLUSH ASDIRECTED PRN PRN Reason: Keep Vein Open Sodium Chloride (Saline Flush) 2.5 ml FLUSH ASDIRECTED PRN PRN Reason: Keep Vein Open Discontinued Medications Ephedrine Sulfate (Ephedrine Sulfate) Confirm Administered Dose 50 mg .ROUTE .STK-MED ONE Stop: 10/01/17 09:38 Clindamycin Phosphate 900 mg/ (Premix) 50 mls @ 100 mls/hr IV ASDIRECTED ONE Stop: 10/01/17 09:46 Last Admin: 10/01/17 13:51 Dose: Not Given Oxytocin/Sodium Chloride (Oxytocin 30 Unit/500 Ml-Ns) Confirm Administered Dose 60 unit in 1,000 mls @ as directed .ROUTE .STK-MED ONE Stop: 10/01/17 09:36 Last Admin: 10/01/17 13:51 Dose: Not Given Morphine Sulfate (Duramorph Pf) Confirm Administered Dose 1 mg .ROUTE .STK-MED ONE Stop: 10/01/17 09:38 Ondansetron HCl (Zofran) Confirm Administered Dose 4 mg .ROUTE .STK-MED ONE Stop: 10/01/17 10:27 Phenylephrine HCl (Phenylephrine In Ns 100 Mcg/Ml) Confirm Administered Dose 1 mg .ROUTE .STK-MED ONE Stop: 10/01/17 09:38 Phenylephrine HCl (Sae-Synephrine) Confirm Administered Dose 10 mg .ROUTE .STK- MED ONE Stop: 10/01/17 10:08 Propofol (Diprivan 20 Ml) Confirm Administered Dose 200 mg .ROUTE .STK-MED ONE Stop: 10/01/17 10:30 - Infant Interaction Disposition, : to Nursery Interaction: Holding Feeding: Attempted ; Nursed Fair/Poor Support Person: - Recovery Exam Fundal Tone: Firm Fundal Level: At Umbilicus Fundal Placement: Midline Lochia Amount: Small Lochia Color: Rubra/Red Perineum Description: Intact, Minimal Bruising/Swelling Episiotomy/Laceration: None Bladder Status: Indwelling Catheter in Place Urinary Elimination: Indwelling Catheter - Exam General: Alert, Oriented Neck: Supple Lungs: Clear to Auscultation, Normal Respiratory Effort Cardiovascular: Regular Rate, Regular Rhythm GI/Abdominal Exam: Normal Bowel Sounds, Soft, No Mass Extremities: Normal Inspection, Pedal Edema (trace) Skin: Warm, Dry, Intact - Problem List & Annotations (1) delivery delivered SNOMED Code(s): 194461418 Code(s): O82 - ENCOUNTER FOR DELIVERY WITHOUT INDICATION Status: Acute Current Visit: Yes - Problem List Review Problem List Initiated/Reviewed/Updated: Yes - Assessment Assessment:: POD #1 s/p PLTCS with di/di twins. Minimal pain and lochia. Denies SOB or chest pain. Encouraged ambulation and work on breast feeding today. - Plan Plan:: Continue routine post-op cares. <Roberta Draper - Last Filed: 10/02/17 12:48> - Patient Data Vital Signs - Most Recent: Last Vital Signs Temp 36.9 C 10/02/17 08:48 Pulse 90 10/02/17 08:48 Resp 16 10/02/17 10:00 BP 113/82 10/02/17 08:48 Pulse Ox 96 10/02/17 11:10 I&O - Last 24 Hours: Intake & Output 10/01/17 10/02/17 10/02/17 22:59 06:59 14:59 Intake Total 1750 700 Output Total 850 1900 Balance 900 -1200 Lab Results - Last 24 Hours: Laboratory Results - last 24 hr 10/02/17 Range/Units 05:26 Hgb 12.0 (12.0-16.0) g/dL Hct 34.6 L (36.0-46.0) % Med Orders - Current: Current Medications Al Hydroxide/Mg Hydroxide (Mag-Al Plus) 30 ml PO Q8H PRN PRN Reason: Heartburn Bisacodyl (Dulcolax) 10 mg RECTAL .ONCE PRN PRN Reason: Constipation Citric Acid/Sodium Citrate (Bicitra Solution) 30 ml PO .ONCE [facility] Diphenhydramine HCl (Benadryl) 25 mg IVPUSH Q6H PRN PRN Reason: Itching or Nausea Docusate Sodium (Colace) 100 mg PO BID [facility] Last Admin: 10/02/17 08:57 Dose: 100 mg Emollient Ointment (Lansinoh Hpa) 0 gm TOP ASDIRECTED PRN PRN Reason: Sore Nipples Fentanyl (Sublimaze) 25 - 50 mcg IVPUSH Q30M PRN PRN Reason: Pain Lactated Ringer's (Ringers, Lactated) 1,000 mls @ 500 mls/hr IV .BOLUS [facility] Last Admin: 10/01/17 04:49 Dose: 500 mls/hr Oxytocin/Sodium Chloride (Oxytocin 30 Unit/500 Ml-Ns) 30 unit in 500 mls @ 250 mls/hr IV TITRATE [facility] Lactated Ringer's (Ringers, Lactated) 1,000 mls @ 500 mls/hr IV .BOLUS [facility] Lactated Ringer's (Ringers, Lactated) 1,000 mls @ 125 mls/hr IV ASDIRECTED [facility] Ibuprofen (Motrin) 800 mg PO Q8H PRN PRN Reason: mild pain or fever Ondansetron HCl (Zofran) 4 mg IV Q4H PRN PRN Reason: Nausea/Vomiting Oxycodone/Acetaminophen (Percocet 325-5 Mg) 1 tab PO Q4H PRN PRN Reason: Pain (moderate 4-6) Oxycodone/Acetaminophen (Percocet 325-5 Mg) 2 tab PO Q4H PRN PRN Reason: Pain (moderate 4-6) Oxycodone/Acetaminophen (Percocet 325-5 Mg) 1 - 2 tab PO Q6H PRN PRN Reason: Pain Stop: 10/03/17 14:00 Simethicone (Simethicone) 80 mg PO Q4H PRN PRN Reason: Gas Sodium Chloride (Saline Flush) 10 ml FLUSH ASDIRECTED PRN PRN Reason: Keep Vein Open Sodium Chloride (Saline Flush) 2.5 ml FLUSH ASDIRECTED PRN PRN Reason: Keep Vein Open Sodium Chloride (Saline Flush) 10 ml FLUSH ASDIRECTED PRN PRN Reason: Keep Vein Open Sodium Chloride (Saline Flush) 2.5 ml FLUSH ASDIRECTED PRN PRN Reason: Keep Vein Open Discontinued Medications Diphenhydramine HCl (Benadryl) 25 mg IVPUSH Q4H PRN PRN Reason: Itching Stop: 10/02/17 11:05 Ephedrine Sulfate (Ephedrine Sulfate) Confirm Administered Dose 50 mg .ROUTE .STK-MED ONE Stop: 10/01/17 09:38 Clindamycin Phosphate 900 mg/ (Premix) 50 mls @ 100 mls/hr IV ASDIRECTED ONE Stop: 10/01/17 09:46 Last Admin: 10/01/17 13:51 Dose: Not Given Oxytocin/Sodium Chloride (Oxytocin 30 Unit/500 Ml-Ns) Confirm Administered Dose 60 unit in 1,000 mls @ as directed .ROUTE .STK-MED ONE Stop: 10/01/17 09:36 Last Admin: 10/01/17 13:51 Dose: Not Given Ketorolac Tromethamine (Toradol) 30 mg IVPUSH Q6H [facility] Stop: 10/02/17 10:46 Last Admin: 10/02/17 11:10 Dose: 30 mg Morphine Sulfate (Duramorph Pf) Confirm Administered Dose 1 mg .ROUTE .STK-MED ONE Stop: 10/01/17 09:38 Nalbuphine HCl (Nubain) 5 mg IVPUSH Q3H PRN PRN Reason: Pruritis Stop: 10/02/17 11:05 Naloxone HCl (Narcan) 0.1 mg IVPUSH ONETIME PRN PRN Reason: Other Stop: 10/02/17 11:05 Ondansetron HCl (Zofran) Confirm Administered Dose 4 mg .ROUTE .STK-MED ONE Stop: 10/01/17 10:27 Phenylephrine HCl (Phenylephrine In Ns 100 Mcg/Ml) Confirm Administered Dose 1 mg .ROUTE .STK-MED ONE Stop: 10/01/17 09:38 Phenylephrine HCl (Sae-Synephrine) Confirm Administered Dose 10 mg .ROUTE .STK- MED ONE Stop: 10/01/17 10:08 Propofol (Diprivan 20 Ml) Confirm Administered Dose 200 mg .ROUTE .STK-MED ONE Stop: 10/01/17 10:30 - Plan Plan:: Patient was seen and examined, tolerating diet, pain well controlled. Baby boy is being transferred to [facility] as he is still requiring oxygen. Discussed discharge today or tomorrow.
[2017-10-02] MEDS: Docusate Sodium 100 MG Cap PO SCH ×2 (08:57→21:24)
[2017-10-02] MEDS: Acetaminophen/oxyCODONE 325-5 MG Tab PO PRN ×2 (13:30→23:12)
[2017-10-02] MEDS: Ibuprofen 800 MG Tab PO PRN (19:46)
[2017-10-03 04:06] VITALS: BP 106/64
[2017-10-03] MEDS: Ibuprofen 800 MG Tab PO PRN (06:15)
--- NOTE | 2017-10-03 08:15 | PCM.PNPP ---
- General Info Date of Service: 10/03/17 Functional Status: Reports: Pain Controlled, Tolerating Diet, Ambulating, Urinating - Review of Systems General: Denies: Fever, Weakness, Fatigue Pulmonary: Denies: Shortness of Breath, Pleuritic Chest Pain, Cough Cardiovascular: Denies: Chest Pain, Palpitations, Dyspnea on Exertion Gastrointestinal: Denies: Abdominal Pain Genitourinary: Denies: Dysuria - General Info Date of Service: 10/03/17 - Patient Data Vital Signs - Most Recent: Last Vital Signs Temp 36.6 C 10/03/17 04:00 Pulse 91 10/03/17 04:00 Resp 16 10/03/17 04:00 BP 106/64 10/03/17 04:00 Pulse Ox 96 10/03/17 04:00 Weight - Most Recent: 82.554 kg Med Orders - Current: Current Medications Al Hydroxide/Mg Hydroxide (Mag-Al Plus) 30 ml PO Q8H PRN PRN Reason: Heartburn Bisacodyl (Dulcolax) 10 mg RECTAL .ONCE PRN PRN Reason: Constipation Citric Acid/Sodium Citrate (Bicitra Solution) 30 ml PO .ONCE ILA Diphenhydramine HCl (Benadryl) 25 mg IVPUSH Q6H PRN PRN Reason: Itching or Nausea Docusate Sodium (Colace) 100 mg PO BID [facility] Last Admin: 10/02/17 21:24 Dose: 100 mg Emollient Ointment (Lansinoh Hpa) 0 gm TOP ASDIRECTED PRN PRN Reason: Sore Nipples Fentanyl (Sublimaze) 25 - 50 mcg IVPUSH Q30M PRN PRN Reason: Pain Lactated Ringer's (Ringers, Lactated) 1,000 mls @ 500 mls/hr IV .BOLUS [facility] Last Admin: 10/01/17 04:49 Dose: 500 mls/hr Oxytocin/Sodium Chloride (Oxytocin 30 Unit/500 Ml-Ns) 30 unit in 500 mls @ 250 mls/hr IV TITRATE ILA Lactated Ringer's (Ringers, Lactated) 1,000 mls @ 500 mls/hr IV .BOLUS [facility] Lactated Ringer's (Ringers, Lactated) 1,000 mls @ 125 mls/hr IV ASDIRECTED [facility] Ibuprofen (Motrin) 800 mg PO Q8H PRN PRN Reason: mild pain or fever Last Admin: 10/03/17 06:15 Dose: 800 mg Ondansetron HCl (Zofran) 4 mg IV Q4H PRN PRN Reason: Nausea/Vomiting Oxycodone/Acetaminophen (Percocet 325-5 Mg) 1 tab PO Q4H PRN PRN Reason: Pain (moderate 4-6) Last Admin: 10/02/17 23:12 Dose: 1 tab Oxycodone/Acetaminophen (Percocet 325-5 Mg) 2 tab PO Q4H PRN PRN Reason: Pain (moderate 4-6) Oxycodone/Acetaminophen (Percocet 325-5 Mg) 1 - 2 tab PO Q6H PRN PRN Reason: Pain Stop: 10/03/17 14:00 Simethicone (Simethicone) 80 mg PO Q4H PRN PRN Reason: Gas Sodium Chloride (Saline Flush) 10 ml FLUSH ASDIRECTED PRN PRN Reason: Keep Vein Open Sodium Chloride (Saline Flush) 2.5 ml FLUSH ASDIRECTED PRN PRN Reason: Keep Vein Open Sodium Chloride (Saline Flush) 10 ml FLUSH ASDIRECTED PRN PRN Reason: Keep Vein Open Sodium Chloride (Saline Flush) 2.5 ml FLUSH ASDIRECTED PRN PRN Reason: Keep Vein Open Discontinued Medications Diphenhydramine HCl (Benadryl) 25 mg IVPUSH Q4H PRN PRN Reason: Itching Stop: 10/02/17 11:05 Ephedrine Sulfate (Ephedrine Sulfate) Confirm Administered Dose 50 mg .ROUTE .STK-MED ONE Stop: 10/01/17 09:38 Clindamycin Phosphate 900 mg/ (Premix) 50 mls @ 100 mls/hr IV ASDIRECTED ONE Stop: 10/01/17 09:46 Last Admin: 10/01/17 13:51 Dose: Not Given Oxytocin/Sodium Chloride (Oxytocin 30 Unit/500 Ml-Ns) Confirm Administered Dose 60 unit in 1,000 mls @ as directed .ROUTE .STK-MED ONE Stop: 10/01/17 09:36 Last Admin: 10/01/17 13:51 Dose: Not Given Ketorolac Tromethamine (Toradol) 30 mg IVPUSH Q6H ILA Stop: 10/02/17 10:46 Last Admin: 10/02/17 11:10 Dose: 30 mg Morphine Sulfate (Duramorph Pf) Confirm Administered Dose 1 mg .ROUTE .STK-MED ONE Stop: 10/01/17 09:38 Nalbuphine HCl (Nubain) 5 mg IVPUSH Q3H PRN PRN Reason: Pruritis Stop: 10/02/17 11:05 Naloxone HCl (Narcan) 0.1 mg IVPUSH ONETIME PRN PRN Reason: Other Stop: 10/02/17 11:05 Ondansetron HCl (Zofran) Confirm Administered Dose 4 mg .ROUTE .STK-MED ONE Stop: 10/01/17 10:27 Phenylephrine HCl (Phenylephrine In Ns 100 Mcg/Ml) Confirm Administered Dose 1 mg .ROUTE .STK-MED ONE Stop: 10/01/17 09:38 Phenylephrine HCl (Sae-Synephrine) Confirm Administered Dose 10 mg .ROUTE .STK- MED ONE Stop: 10/01/17 10:08 Propofol (Diprivan 20 Ml) Confirm Administered Dose 200 mg .ROUTE .STK-MED ONE Stop: 10/01/17 10:30 - Infant Interaction Infant Disposition, : [place] to Nursery Infant Interaction: Holding Feeding: Attempted ; Nursed Fair/Poor Support Person: - Recovery Exam Fundal Tone: Firm Fundal Level: 2 Fingerbreadths Below Umbilicus Fundal Placement: Midline Lochia Amount: Scant Lochia Color: Rubra/Red Perineum Description: Intact, Minimal Bruising/Swelling Episiotomy/Laceration: None Bladder Status: Voiding Urinary Elimination: Voided - Exam General: Alert, Oriented Neck: Supple Lungs: Clear to Auscultation, Normal Respiratory Effort Cardiovascular: Regular Rate, Regular Rhythm GI/Abdominal Exam: Normal Bowel Sounds, Soft, Non-Tender, No Organomegaly, No Distention, No Abnormal Bruit, No Mass, Pelvis Stable Extremities: Normal Inspection, Pedal Edema (1+) Psy/Mental Status: Alert, Normal Affect, Normal Mood - Problem List & Annotations (1) delivery delivered SNOMED Code(s): 063915906 Code(s): O82 - ENCOUNTER FOR DELIVERY WITHOUT INDICATION Status: Acute Current Visit: Yes - Problem List Review Problem List Initiated/Reviewed/Updated: Yes - Assessment Assessment:: POD #2 s/p PLTCS with di/di twins. Minimal pain and lochia. Discharge home today if Baby A is discharged. - Plan Plan:: Discharge instructions reviewed. Nothing in the vagina for 6 weeks. Continue PNV while breast feeding. Rx for percocet to use as needed for pain. Instructed patient to call if she develops fever greater than 101 or bleeding through a large pad an hour. No lifting greater than 10 lbs for 6 weeks. Travel precautions given. F/U with [facility] in 2 and 6 weeks.
[2017-10-03] MEDS: Docusate Sodium 100 MG Cap PO SCH (08:29)
== END 2017-10-03 12:15 | disposition home or self-care (01) | DRG 540 ==
LOC: MW.OBCHECK 02:40 → MW.OB 02:43 → OBSVTOIN 09:17 → MW.OBCHECK 10:24 → MW.OB 11:30
PROVIDERS: ADMIT Obstetrics & Gynecology; ATTEND Obstetrics & Gynecology
PROC: 10D00Z1 Extraction of Products of Conception, Low, Open Approach (ICD-10-PCS; principal; 2017-10-01)
DX: O67.9 Intrapartum hemorrhage, unspecified (principal); O32.1XX0 Maternal care for breech presentation, not applicable or unspecified; Z3A.36 36 weeks gestation of pregnancy; Z37.2 Twins, both liveborn
CPT/HCPCS: 36415; 59025; 85014; 85018; 85027; 86850; 86900; 86901; 88307; A9270-GY; J1885; J2274; J2370; J2405; J2704; J7120